=== PATIENT | female | born 2005 | race Caucasian/White ===

== ENCOUNTER 2025-06-03 09:43 | Outpatient (AMB) | payer BC, SELFPAY ==
--- NOTE | 2025-06-03 10:03 | A.OFFPC_ITS ---
Vital Signs 06/03/25 10:16 Height 5 ft 7 in Weight 154 lb BMI 24.1 BP 99/68 Blood Pressure Location Rt brachial Position Sitting Respiration 12 Pulse 70 Pulse Source Pulse Oximeter Temp 97.2 F Temp Source Oral Pulse Oximetry (%) 98 Oxygen Delivery Method Room Air Intake Visit Reasons: PRE PRESS PROOFER EST CARE Intake Note: New patient to establish care Solution Architect Required: No Allergies Republic And Derivatives Allergy (Severe, Verified 06/03/25 10:29) Anaphylaxis Medication List - Last Reviewed 06/03/25 by Chris Bocanegra MA atomoxetine 50 mg PO DAILY hydroxyzine pamoate 25 - 50 mg PO DAILY PRN Tobacco use date assessed: 06/03/25 Dental Screening Dental Screen Date: 06/03/25 Did you have a dental visit in the last 12 months?: Yes Did you have a dental problem in the last 6 months where you did not have access to dental care?: No Was dental information given to patient?: Patient has dentist HPI HPI Comments History of Present Illness Details Vicki All pronouns 20 y/o F with CORIN, ADHD, Autism, Joint L axity 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 - Her symptoms have worsened over the pa st 3 to 5 years, progressing from asymptomatic hypermobility to causing significant pain. - The pain is now severe enough that she sometimes requires a cane for ambulation. - The hypermobility affects all her join ts, but is particularly problematic in her wrists, elbows, shoulders, hips, ankles, knees, and lower back. - She has tried physical therapy, which provides only transient relief for a few hours post-session, with pain returning by the next morning. - Both her brother and nephew exhibit si milar joint issues, suggesting a possible genetic etiology. 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 - She also reports symptoms suggestive o f poor circulation, such as her arm becoming numb within 2 minutes of being elevated. - The chronic pain and joint issues have caused her significant mental distress. 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 - She underwent abdominal surgery for th is condition in October 2021 at [facility]. - She reports no subsequent side effects and is not currently followed by a director of group counseling program. Anxiety, ADHD, and Autism: - The patient has a past medical history of anxiety, ADHD, and autism. - She is managed on atomoxetine and hydr oxyzine, which are prescribed through [facility]. - She states she is managing her mental health conditions. Gender Identity: - The patient identifies as a member of the LGBT community, specifically as genderfluid, and uses all pronouns. - Her preferred name is Lehi. - She experiences significant gender dys phoria and depressive episodes associated with her menstrual cycle. - She has considered a hysterectomy in t he future but wishes to delay any decisions until after she has undergone genetic evaluation for her joint condition, as she is considering egg donation. Anemia: - The patient reports that her last lab work showed low iron levels. - She reports feeling very lethargic, wh ich she attributes to heavy menstrual bleeding. Past Medical History - Surgical History: Abdominal surgery fo r intestinal malrotation with volvulus in October 2021. - Medical History: Anxiety, ADHD, autism , and joint laxity diagnosed 12 years ago. - Medications: Atomoxetine and hydroxyzi ne. Review of Systems - Constitutional: Reports lethargy. - Musculoskeletal: Reports chronic and w orsening pain in all joints, particularly the wrists, elbows, shoulders, hips, ankles, knees, and lower back. Reports joint hypermobility. Uses a cane at times. - Cardiovascular/Vascular: Reports sympt oms of poor circulation, such as her arm becoming numb after being raised for two minutes. - Gynecological: Reports menorrhagia (he jorge menstrual bleeding). - Psychiatric: Reports significant menta l distress, crying spells due to joint pain, and depressive episodes and gender dysphoria related to menstruation. History of anxiety, ADHD, and autism. Physical Exam General: Well developed, well nourished, in no acute distress. Appears stated age. Head: Normocephalic, atraumatic. Eyes: Pupils are equal, round and reactive to light and accommodation. Conjunctivae are clear. Lungs: Clear to auscultation bilaterally. No rales, rhonchi or wheeze noted. Good air flow in all madden. Heart: Regular rate and rhythm. No murmurs, click, rubs or gallops are noted. Abdomen: Bowel sounds present in all quadrants. The abdomen is soft, nontender, with no masses or organomegaly noted. No hernias are noted. Musculoskeletal: Joints are tender with joint laxity affecting wrists, elbows, shoulders, hips, ankles, knees, and lower back. No swelling, redness, or effusions noted. Pulses: Peripheral pulses are equal and palpable bilaterally. Extremities: No clubbing, cyanosis nor edema is noted. Psych: Mood and affect appropriate, but patient reports anxiety and mental distress related to joint issues. Results pending Medical Decision Making The patient is a 20-year-old female with a complex medical history who presents to establish care. Her primary complaint is chronic, worsening, widespread joint pain and hypermobility, with a family history suggestive of a heritable connective tissue disorder such as Padmini-Danlos syndrome (EDS). Given the diagnostic challenges of hypermobile EDS and the lack of local specialists, I support her seeking evaluation with a specialist in [place], Dr. Scherer, and will place a referral to facilitate this. Her significant surgical history of intestinal malrotation with volvulus warrants establishing care with a director of group counseling program for long-term monitoring, despite being asymptomatic currently. A referral to GI will be placed. The patient's report of menorrhagia, lethargy, and a history of low iron is concerning for symptomatic anemia. Therefore, a laboratory workup including iron and ferritin levels is indicated. A referral to RN DIABETES EDUCATOR is also appropriate to address the menorrhagia, which is the likely underlying cause of her anemia, and can also provide a space to discuss her gender dysphoria and future reproductive health goals. Her psychiatric conditions (anxiety, ADHD, autism) appear stable on current medications prescribed by her outside provider. For health maintenance, we will administer the influenza vaccine today and plan for a follow-up visit after the new year to review lab results, specialist consultations, and to conduct a complete physical exam. Plan 1. Generalized Joint Hypermobility Syndr ome - Placing referral to Dr. Trace ferrari, an insurance account assistant in [place], for specialist evaluation of suspected Padmini-Danlos syndrome. - Instructed patient to contact the spec ialist's office via their website to request an appointment. 2. History Of Congenital Intestinal Malr otation - Placing referral to Gastroenterology t o establish care for long-term follow- up. 3. Anemia, Suspected - Ordered lab workup, including iron and ferritin studies, to assess for anemia. - Placing referral to RN DIABETES EDUCATOR for evaluat ion and management of menorrhagia, the likely cause of her anemia. 4. Gender Dysphoria - Advised patient to have the front end software developer update her chart with her preferred name, Vicki. - Referral to RN DIABETES EDUCATOR will also serve as a resource for discussions about managing menses-related dysphoria and future reproductive health options. 5. Anxiety, Adhd, Autism - Patient to continue current medication s (atomoxetine, hydroxyzine) as prescribed by her mental health provider at [facility]. No changes to this regimen were made. 6. Preventative Care - Administered influenza vaccine in the office today. - Patient's immunization records were re viewed and are otherwise up to date. - Plan to follow up in the office after the new year for review of results and a complete physical exam. Patient Instructions - You will receive a flu shot today befo re you leave. - After your visit, please stop at the f ront desk. - At the front end software developer, ask them to update your chart with your preferred name, Lehi. - You need to have blood work done. They will direct you to the lab, which is in the same building, so you can have it done today. - I will send your lab results to you th rough the patient portal. I will call you if there are any urgent concerns. - A referral has been sent to a speciali st in [place], Dr. Scherer, for your joint condition. Please go to his website to request an appointment and let his office know a referral is on its way. - You will receive phone calls from both a gastroenterology (GI) office and an RN DIABETES EDUCATOR office to schedule appointments. They will leave a message with a callback number if you miss their call. - Please schedule a follow-up appointmen t with me after the new year. Consent Patient was informed and verbally consented to the use of an ambient scribe for clinic note documentation during this visit. Total time spent caring for the patient today was 45 minutes. This includes time spent before the visit reviewing the chart, time spent during the visit, and time spent after the visit on documentation, reviewing laboratory results, diagnostic imaging, medications, performing a medically necessary evaluation, counseling on diagnoses, care coordination, ordering appropriate tests, ordering appropriate medications, review of tests performed by other providers, reporting test results with the patient, communication with other healthcare providers. [facility] Medical History (Updated 06/03/25 @ 10:47 by YANNICK Blum) ADHD Autism Joint laxity Sinusitis Surgical History (Updated 06/03/25 @ 10:43 by YANNICK Blum) No pertinent past surgical history Family History (Updated 06/03/25 @ 10:22 by Chris Bocanegra MA) Mother Asthma Father HTN (hypertension) High cholesterol Diabetes FH: kidney cancer Paternal Grandfather HTN (hypertension) High cholesterol Maternal Grandfather Cancer Social History (Updated 06/03/25 @ 10:20 by Chris Bocanegra MA) Household Members: Family Both parents involved: Yes Caregiver staying overnight: No Housing: House Are you a primary post anesthesia care unit nurse to a significant other at home: No Do you presently have visiting nurse or other home services: No 75 years or older and lives alone: No Alcohol intake: never Patient Tobacco Use Status: Never used Tobacco e-Cigarette/Vaping Use: Never Used Second Hand Smoke Exposure: No Current occupational status: employed and student 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 1. Little interest or pleasure in doing things: not at all 2. Feeling down, depressed, or hopeless: not at all 3. Trouble falling or staying asleep, or sleeping too much: more than half the days 4. Feeling tired or having little energy: not at all 5. Poor appetite or overeating: not at all 6. Feeling bad about yourself - or that you are a failure or have let yourself or your family down: not at all 7. Trouble concentrating on things, such as reading the newspaper or watching television: not at all 8. Moving or speaking so slowly that other people could have noticed. Or the opposite - being so fidgety or restless that you have been moving around a lot more than usual: not at all 9. Thoughts that you would be better off or of hurting yourself in some way: not at all Total score: 2 Depression Screening Interpretation: Negative Depression Screening Done: Yes 43595 - PHQ-9 Billing: Yes Source: Developed by Drs. Abdoulaye Mckeon, Sachi Suggs, Get Ayala and colleagues, with an educational yasmeen from [employer]. Thrive Questionnaire Date Thrive assessed: 06/03/25 I am a: Patient What is your living situation today?: I have a steady place to live Within the past 12 months, did the food you bought not last and you didn't have the money to get more?: Never true Within the past 12 months, did you worry whether your food would run out before you got money to buy more?: Never true Do you have trouble paying for medicines?: No Do you have trouble getting transportation to medical appointments?: No Do you have trouble paying your heating and electricity bill?: No Do you have trouble taking care of your child, family member or friend?: No Do you have trouble with day-to-day activities such as bathing, preparing meals, shopping, managing finances, etc.?: No Are you currently unemployed and looking for a job?: No Are you interested in more education?: Yes Please select the resources that you would like help with: None Currently or been in a relationship where the following occur: Controlled Emotionally THRIVE Score: 1 AUDIT C Alcohol Use Questionnaire (AUDIT-C) 1. How often do you have a drink containing alcohol?: Never 3. How often do you have six or more drinks on one occasion?: Never Total Score: 0 Score Reviewed/Action Taken: Yes CORIN-7 AMB Questionnaire CORIN-7 Date CORIN - 7 assessed: 06/03/25 Feeling nervous, anxious, or on edge: 1 = Several days Not being able to stop or control worryin = Not at all Worrying too much about different things: 1 = Several days Trouble relaxin = Several days Being so restless that it is hard to sit still: 1 = Several days Becoming easily annoyed or irritable: 1 = Several days Feeling afraid as if something awful might happen: 0 = Not at all Total CORIN-7 score (0-4 normal; 5-9 mild; 10-14 moderate; 15-21 severe): 5 Source: Developed by Drs. Abdoulaye Mckeon, Sachi Suggs, Get Ayala and colleagues, with an educational yasmeen from [employer]. CORIN-7 Assessment Billing CORIN-7 Assessment Tool: CORIN-7 Assessment 72862 Physical exam (Primary Care) Vital Signs: Last Vital Signs Temp 97.2 F 06/03/25 10:16 Pulse 70 06/03/25 10:16 Resp 12 06/03/25 10:16 BP 99/68 06/03/25 10:16 Pulse Ox 98 06/03/25 10:16 Oxygen Delivery Method Room Air 06/03/25 10:16 BMI result Body Mass Index 24.1 Tobacco/Smoking Status: Tobacco use Status Tobacco use date assessed 06/03/25 06/03/25 10:06 Patient Tobacco Use Status Never used Tobacco 06/03/25 10:20 e-Cigarette/Vaping Use Never Used 06/03/25 10:20 PHQ-9: PHQ-9 Score PHQ-9: Total score 2 06/03/25 10:15 Depression Screening Interpretation: Negative Thrive Assessment: Date of Thrive Assessment Date Thrive assessed 06/03/25 06/03/25 10:06 Currently or been in a relationship where the following occur: Controlled Emotionally Coding Level of Care Code New Pt Level 4 (61021) Complex EM visit Add On G2211 Diagnoses Encounter to establish care Z76.89 CORIN (generalized anxiety disorder) F41.1 Autism F84.0 Attention deficit hyperactivity disorder (ADHD), predominantly inattentive type F90.0 Attention deficit-hyperactivity disorder type: predominantly inattentive Joint laxity M25.20 Influenza vaccination administered at current visit Z23 History of abdominal surgery Z98.890 Gender dysphoria in adult F64.0 Menorrhagia N92.0 Additional Codes CORIN-7 Assessment Billing - CORIN-7 Assessment Tool: CORIN-7 Assessment 72336 ([id number]) PHQ-9 - 61110 - PHQ-9 Billing: Yes ([id number]) Assessment & Plan Assessment & Plan (1) Encounter to establish care: Code(s): Z76.89 - Persons encountering health services in other specified circumstances (2) CORIN (generalized anxiety disorder): Code(s): F41.1 - Generalized anxiety disorder Category: Medical (3) Autism: Code(s): F84.0 - Autistic disorder Category: Medical (4) ADHD: Code(s): F90.9 - Attention-deficit hyperactivity disorder, unspecified type Category: Medical Qualifiers: Attention deficit-hyperactivity disorder type: predominantly inattentive Qualified Code(s): F90.0 - Attention-deficit hyperactivity disorder, predominantly inattentive type (5) Joint laxity: Code(s): M25.20 - Flail joint, unspecified joint Category: Medical (6) Influenza vaccination administered at current visit: Onset Date: ~06/03/25 Code(s): Z23 - Encounter for immunization Category: Medical (7) History of abdominal surgery: Onset Date: ~10/2021 Comment: Volvulus repair [facility] Code(s): Z98.890 - Other specified postprocedural states Category: Surgical (8) Gender dysphoria in adult: Code(s): F64.0 - Transsexualism Category: Medical (9) Menorrhagia: Code(s): N92.0 - Excessive and frequent menstruation with regular cycle Category: Medical Plan . Orders: Orders Complete Blood Count no Diff Today N92.0 - Excessive and frequent menstruation with regular cycle Comprehensive Met. Panel Today N92.0 - Excessive and frequent menstruation with regular cycle Vitamin B12 and Folate Today N92.0 - Excessive and frequent menstruation with regular cycle IRON PROFILE Today N92.0 - Excessive and frequent menstruation with regular cycle Hemoglobin A1c Today N92.0 - Excessive and frequent menstruation with regular cycle Lipid Panel Today N92.0 - Excessive and frequent menstruation with regular cycle Microalbumin, Random (w Creat) Today N92.0 - Excessive and frequent menstruation with regular cycle TSH reflex Free T4 Today N92.0 - Excessive and frequent menstruation with regular cycle Vitamin D 25-OH Total Today N92.0 - Excessive and frequent menstruation with regular cycle Ferritin Today N92.0 - Excessive and frequent menstruation with regular cycle Referrals Endocrinology Referral M25.20 - Flail joint, unspecified joint Gastroenterology Referral Z98.890 - Other specified postprocedural states RN DIABETES EDUCATOR Referral F64.0 - Transsexualism, N92.0 - Excessive and frequent menstruation with regular cycle Patient Instructions: Walk-In Care (Urgent Care): We Make it Easy Walk-in for urgent medical issues such as: ? Seasonal Allergies ? Insect Bites ? Cough ? Diarrhea ? Acute Asthma Attacks ? Back, Knee or Joint Pain ? Ear Infection ? Fever without a Rash ? Headaches ? Nausea ? Caroleen Eye, Rash or Skin Irritation ? Sore Throat ? Sports Physicals ? Vomiting Most insurances are accepted. Patients do not need to be part of the [facility] to seek care at the walk-in clinic. Locations [address] [place] [address] Open Tuesday through Tuesday 8am-5pm *Hours may vary due to staffing availability. To confirm Walk-In Care hours please call. [facility] , [place] [address] ? [phone] [facility] Walk-In Care in [place] provides services to ages 18 and over. Open Tuesday-Tuesday: 7 a.m. to 5 p.m. and Tuesday: 9 a.m. to 3 p.m.* *Hours may vary due to staffing availability. To confirm Walk-In Care hours in [place], please call [phone]. [address] [place] [address] ? [phone] [facility] Walk-In Care in [place] provides services to ages 12 and over. Open Tuesday-Tuesday: 8 a.m. to 5 p.m. Hours may vary due to staffing availability. To confirm Walk-In Care hours in [place], please call [phone]. LABORATORY SERVICES: [facility] ? Primary Location [address] [place] [address] Tuesday through Tuesday 6:00 AM ? 5:00 PM Tuesday 7:00 AM ? 11:00 AM* [phone] The [facility] is centrally located near the front entrance of the [facility] for easy outpatient access. Convenient parking is provided for outpatients. *Hours may vary due to staffing availability. To confirm Laboratory hours for any location, please call [phone]. Offsite Location For your convenience, we offer offsite laboratory draw stations at the following locations: [address] [facility], [place] ? [facility] [address] [facility], [address], [place] Tuesday through Tuesday 7:30 AM ? 1:00 PM* [phone] *Hours may vary due to staffing availability. To confirm Laboratory hours for any location, please call [phone]. [place] ? [facility] [address] [facility], [place] Tuesday through Tuesday 6:00 AM ? 3:30 PM* Tuesday 6:30 AM ? 3 PM* [phone] *Hours may vary due to staffing availability. To confirm Laboratory hours for any location, please call [phone]. [address] [facility] Tuesday through Tuesday 7:30 AM ? 4:00 PM* [phone] *Hours may vary due to staffing availability. To confirm Laboratory hours for any location, please call [phone] [place] [address] Tuesday through 9:00 AM ? 4:00 PM* *Hours may vary due to staffing availability. To confirm Laboratory hours for any location, please call [phone]. Appointments are not necessary. Walk-ins are welcome. Like all the departments throughout the [facility], our Lab undergoes frequent reviews to ensure the quality and accuracy of test results, and our staff takes special pride in its status as a nationally accredited facility. Patient Portal: [facility] ONE PATIENT. ONE RECORD. BETTER CARE. [facility] has a fully integrated, cutting- edge mobile electronic health information system that has revolutionized the way we care for our patients and manage our organization. This system improves communication and coordination enabling us to provide safe, higher-quality care, and an overall positive experience for staff and patients. Our first priority, as always, is to deliver the highest quality care possible. The system is running in the background supporting that priority. This portal is for all [facility] services and practices. If you are experiencing any technical difficulties with enrolling or logging into the Patient Portal please complete the [facility] Patient Portal Technical Support Form. [facility] now offers a new secure on-line interactive tool for patients to review their health information ? ?Patient Portal. This interactive web portal will enable patients and their families to take an active role in their care by providing easy, secure access to their health information via the internet. The Patient Portal provides patients with instant access to their health information, including laboratory results, medications, allergies, demographic information, visit history, and more. In addition to managing their own care, parents and health care proxies with authorized consent will appreciate the ability to access the records of those individuals for whom they provide care. Please note: if you wish to gain access (Proxy) to another patient?s portal, you will be required to come to the Medical Records Department in person at [facility]. Both the patient giving proxy access and the proxy will need to provide photo identification and complete the appropriate authorization. The Patient Portal also allows track their appointments online. The [facility] Patient Portal also saves patients time by allowing them to submit updates to their demographic and contact information prior to their visits. Portal email notifications will also alert patients to any new activity on their portal, such as test results and new appointments. In order to initially enroll in the [facility] Patient Portal, you will need to enter some required information including the following: * your [facility] Medical Record number * your personal home email address * name * date of Please note: In order to enroll in the [facility] Patient Portal, we need to have your email address on file in your electronic medical record. ?The email address needs to be specific for one person (yourself) in order for your Portal enrollment to be successful. ?You can update your email address in person with our Registration staff when you are registering for a hospital visit. ?Otherwise, you will need to come to the Health Information Management (Medical Records) Department at [facility]. ?We are open from Tuesday ? Tuesday from 7:30 a.m. ? 4:30 p.m. ?You will be required to present a photo id. Once you have successfully enrolled in the Patient Portal, you will receive a one-time user id and password for the Portal, sent to your email address. ?This will allow you to log into the Patient Portal within 99 hrs and reset your own logon id and password, and define personal security questions. ?Once your permanent login and password have been set, you can log into the [facility] Patient Portal at any time via the blue button above or from the Portal Logon button on any page of the [facility] website. [facility] and [facility] encourage all of our patients to enroll in Patient Portal as it presents a valuable opportunity for patients and their families to actively participate in their care and stay healthy Welcome to [facility]. ?We look forward to working with you.
[2025-06-03 10:16] VITALS: BP 99/68; PULSE 70; RESP 12; TEMP 36.2; O2SAT 98; BMI 24.1
--- OUTSIDE RECORDS SUMMARY | 2025-06-03 11:10 | XMS_ITS | Clinical Summary ---
Author Organization [facility] Address [address] [place] [id number] Phone Care Team Providers Care Solar Electric Installer Name Role Phone Page, Xiomara NICOLAS Primary Care Provider [phone] Allergies Active Allergy Reactions Criticality Noted Date Comments Food 07/20/2018 lemon, [place],oranges Medications traZODone 50 MG tablet 1 Active hydrOXYzine 25 MG capsule TAKE 1-2 CAPSULES BY MOUTH NEEDED FOR ANXIETY DAILY 2 Active EPINEPHrine 0.3 MG/0.3ML injection syringe USE DIRECTED FOR ANAPHYLAXIS THEN CALL 911 2 Active atomoxetine 40 MG capsule Take 40 mg by mouth every morning. Active Active Problems Problem Noted Date Diagnosed Date Joint pain 01/22/2025 Assessment & Plan (01/22/2025 5:08 PM EDT): Known to have laxity, likely contributing to symptoms, but given severity would like to obtain screening labs for inflammatory markers. If elevated would refer to rheumatology. 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 Diagnostic laparoscopy, exploratory laparotomy, reduction of cecal volvulus, Manteca's procedure fore malrotation, ileocecectomy, ileocolostomy. Assessment & Plan (02/03/2022 2:18 PM EDT): Doing well post surgery. 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 Not sure at this point whether they are interested in transitioning in the future. Assessment & Plan (12/26/2020 3:42 PM EDT): Vicki is interested in menstrual suppression, but also wishes to avoid breast growth. Will consult with cris rsosi regarding their recommendations. If OCP or Depo, can manage in our office. 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 Neck/back pain improved with PT. Will refer to OT for wrist discomfort. Recommend screening echocardiogram which our office will arrange. Assessment & Plan (02/03/2022 2:18 PM EDT): Recommend [facility] for ongoing back/neck complaints, contact info given to Vicki and shira to set up appt. Assessment & Plan (07/20/2018 12:48 PM EST): Sent to [facility]; particularly because of the knee click Resolved Problems Problem Noted Date Diagnosed Date Resolved Date Viral warts 02/03/2022 01/22/2025 Assessment & Plan (02/03/2022 2:24 PM EDT): OTC salicylic acid wart treatments (preceded by soaks/filing). Can RTO for cryotherapy if desired. Need for case management follow-up 12/25/2019 12/26/2020 Overview (12/25/2019): 12/24/19 will need maintenece hgb Assessment & Plan (12/25/2019 1:32 PM EDT): 12/24/19 will need maintenece hgb BMI (body mass index), pedia tric, 85% to less than 95% for age 0701/26/2017 12/26/2020 Immunizations Immunization Administration Dates Next Due COVID-19 Moderna, monovalent , 12+ years 07/20/2022 DTaP 11/12/2010,06/28/2006 DTaP / Hep B / IPV 2005,2005, 005 HPV Vaccine 9 Valent 06/14/2018,01/26/2017 Hep A, ped/adol 06/14/2018,01/26/2017 Hep B, ped/adol 2005 Hib (PRP-T) 06/28/2006, 6,2005,05/19 IPV 11/12/2010 Influenza, injectable, MDCK, preservative free, quadrivalent 07/10/2022,04/30/2020 Influenza, injectable, quadrivalent 10/2014,06/19/2014,04/25/2012,04/14 Influenza, injectable, quadr ivalent, preservative free 05/08/2023,05/09/2008 Influenza, injectable, triva lent, preservative free 06/28/2006,2005 MMR 06/02/2009,03/30/2006 Meningococcal Conj (Menactra) MCV4P 02/03/2022,0 01/26/2017 Pneumococcal Conjugate 06/28/2006,2005,2005,05/19 Tdap 01/26/2017 Varicella 06/02/2009,03/30/2006 Family History Medical History Relation Name Comments No Known Problems Brother Casper Diabetes type II Father Soraya Hyperlipidemia Father Soraya Hypertension Father Soraya Kidney cancer Father Soraya with mets to l marilyn Cancer (Adult Onset) Maternal Grandfather lungs Anxiety disorder Maternal Grandmother Migraines Maternal Grandmother Asthma Mother Cirilo Hyperlipidemia Paternal Grandfather Hypertension Paternal Grandfather Anxiety disorder Paternal Grandmother Obesity Paternal Grandmother Relation Name Status Comments Brother Casper Alive Father Soraya Alive Maternal Grandfather Alive Maternal Grandmother Alive Mother Cirilo Alive Paternal Grandfather Alive Paternal Grandmother Alive Social History Tobacco Use Types Packs/Day Years Used Date Smoking Tobacco: Never Tobacco Cessation:Counseling Given: Yes Alcohol Use Standard Drinks/Week Comments No 0 (1 standard drink = 0.6 oz pur e alcohol) Hunger/Food Answer Date Recorded In the last 12 months, did y ou or your family ever eat less than you felt you should because there wasn't enough money for food? No 01/22/2025 Stable Housing Answer Date Recorded Are you worried that in the next 2 months you may not have stable housing? No 01/22/2025 Transportation Concerns Answer Date Rec orded In the last 12 months, have you or your family ever had to go without healthcare because you didn't have a way to get there? No 01/22/2025 Hazards in Home Answer Date Recorded Think about the place you li ve. Do you have problems with any of the following? Pests (mice or roaches), mold, no/not working smoke detectors, water leaks, no window guards. No 2024 Financing Utilities Answer Date Recorde d In the last 12 months, has t he electric, gas, oil, or water company threatened to shut off your services in your home? No 01/22/2025 Safety at Home Answer Date Recorded Are you or your family worried about feeling saf e in your home? No 01/22/2025 Outside Support Answer Date Recorded Do you feel that you need mo re support from other people or programs to help you care for yourself or your family? No 01/22/2025 Understanding Health Concerns Answer Da te Recorded Do you need help understandi ng your or your child's healthcare needs (diagnosis, medications, plan, etc.)? No 01/22/2025 Financing Health Concerns Answer Date R ecorded In the last 12 months, was t here a time when your child needed to see a doctor or get medications or supplies but could not because of cost? No 01/22/2025 Missing School or Work Answer Date Kenny rded Did you or your child miss s chool or work because of a health problem that could have been avoided? No 01/22/2025 Child Education Answer Date Recorded Do you have concerns about y our/your child's learning or behavior in school, preschool, or daycare? Yes 01/22/2025 Comments No Sex and Gender Information Value Date Recorded Sex Assigned at Not on file Legal Sex Female 6:11 PM EDT Gender Identity Gender nonconforming/non-binary 12/24/2019 3:40 PM EDT Sexual Orientation panromantic, asexual, polyamo yaya 12/24/2019 3:40 PM EDT Last Filed Vital Signs Vital Sign Reading Time Taken Comments Blood Pressure 114/62 01/22/2025 8:15 AM EDT Pulse - - Temperature 36.9 C (98.4 F) 12/16/2015 12:00 AM EDT Respiratory Rate - - Oxygen Saturation - - Inhaled Oxygen Concentration - - Weight 67.5 kg (148 lb 12.8 oz) 01/22/2025 8:15 AM EDT Height 168.3 cm (5' 6.25 ) 01/22/2025 8:15 AM ED T Body Mass Index 23.84 01/22/2025 8:15 AM EDT Plan of Treatment Health Maintenance Due Date Last Done Comments Men B Vaccine (1 of 2 - Standard) 2021 Chlamydia and Gonorrhea Screening 07/25/2024 Influenza Vaccines (#1) 2025 06/02/20, 05/08/2023, 07/10/2022, Additional history exists COVID-19 Vaccine (5 - 2024-2 6 season) 2025 06/02/2024, 05/08/2023, 07/20/2022, Additional history exists DTaP,Tdap,and Td Vaccines (7 - Td or Tdap) 01/26/2027 01/26/2017, 11/12/2010, 06/28/2006, Additional history exists Hepatitis B Vaccines Completed 2005, 2005, 2005, Additional history exists HIB Vaccines Completed 06/28/2006, 08/26, 2005, Additional history exists Pneumococcal Vaccine Completed 06/28/2006, 2005, 2005, Additional history exists MMR Vaccines Completed 06/02/2009, 03/30/2006 Varicella Vaccines Completed 06/02/2009, 03/30/2006 IPV Vaccines Completed 11/12/2010, 08/26, 2005, Additional history exists HPV Vaccines Completed 06/14/2018, 01/26/2017 Hepatitis A Vaccines Completed 06/14/2018, 01/27/20 17 Meningococcal Vaccine Completed 02/03/2022, 017 Insurance [facility] [address] Care Teams Solar Electric Installer Relationship Specialty Start Date End Date Xiomara Page NP [address] [place] [id number] PCP - General Pediatrics 11/15/19
--- OUTSIDE RECORDS SUMMARY | 2025-06-03 11:10 | XMS_ITS | Encounter Summary ---
Author Organization [facility] Address [address] [place] [address] Phone Care Team Providers Care Wood Barrel Reconditioner Name Role Phone Xiomara Pgae NP Primary Care Provider [phone] Encounter Details Date Type Department Care Team (Late st Contact Info) Description 12/11/2017 Conversion Encounter [facility] [address] [place] [id number] Social History Tobacco Use Types Packs/Day Years Used Date Smoking Tobacco: Never Assessed Comments Unknown Sex and Gender Information Value Date Recorded Sex Assigned at Not on file Legal Sex Female 6:11 PM EDT Gender Identity Gender nonconforming/non-binary 12/24/2019 3:40 PM EDT Sexual Orientation panromantic, asexual, polyamo yaya 12/24/2019 3:40 PM EDT documented as of this encounter Plan of Treatment Not on file documented as of this encounter Visit Diagnoses Not on filedocumented in this encounter Care Teams Wood Barrel Reconditioner Relationship Specialty Start Date End Date Xiomara Page NP [address] [place] [id number] PCP - General Pediatrics 11/15/19 documented as of this encounter
== END 2025-06-03 11:04 | disposition home or self-care (01) ==
LOC: HO.HMCFM 09:44
PROVIDERS: PCP Nurse Practitioner Family; Visit Provider Nurse Practitioner Family
DX: Z76.89 Persons encountering health services in other specified circumstances (principal); F41.1 Generalized anxiety disorder; F84.0 Autistic disorder; F90.0 Attention-deficit hyperactivity disorder, predominantly inattentive type; M25.20 Flail joint, unspecified joint; Z23 Encounter for immunization; Z98.890 Other specified postprocedural states; F64.0 Transsexualism; N92.0 Excessive and frequent menstruation with regular cycle

== ENCOUNTER → 2025-06-03 09:43 | Outpatient (BNVA) | payer BC, SELFPAY | PROVIDERS: PCP Nurse Practitioner Family; Visit Provider Nurse Practitioner Family | DX: M35.7 Hypermobility syndrome (principal); F41.9 Anxiety disorder, unspecified; F90.9 Attention-deficit hyperactivity disorder, unspecified type; F84.0 Autistic disorder; F41.1 Generalized anxiety disorder; F90.0 Attention-deficit hyperactivity disorder, predominantly inattentive type; F64.0 Transsexualism; N92.0 Excessive and frequent menstruation with regular cycle; Z23 Encounter for immunization; Z76.89 Persons encountering health services in other specified circumstances | CPT/HCPCS: 90471; 90656; 96127 ==